=== PATIENT | female | born 1990 | race Caucasian/White ===

== ENCOUNTER → 2023-09-09 15:52 | Outpatient (REF) | payer BC, SELFPAY | LOC: PNTC 15:52 | PROVIDERS: ATTENDING PHYSICIAN Obstetrics & Gynecology | DX: O99.210 Obesity complicating pregnancy, unspecified trimester (principal); Z87.51 Personal history of pre-term labor | CPT/HCPCS: 76816 ==

== ENCOUNTER → 2023-09-24 15:57 | Outpatient (REF) | payer BC, SELFPAY | LOC: PNTC 15:57 | PROVIDERS: ATTENDING PHYSICIAN Obstetrics & Gynecology | DX: O99.210 Obesity complicating pregnancy, unspecified trimester (principal); Z87.51 Personal history of pre-term labor | CPT/HCPCS: 59025; 76815 ==

== ENCOUNTER → 2023-10-01 15:40 | Outpatient (REF) | payer BC, SELFPAY | LOC: PNTC 15:40 | PROVIDERS: ATTENDING PHYSICIAN Obstetrics & Gynecology | DX: O99.210 Obesity complicating pregnancy, unspecified trimester (principal); Z87.51 Personal history of pre-term labor | CPT/HCPCS: 59025; 76815 ==

== ENCOUNTER 2023-10-08 16:27 | Observation (INO) | payer BC, SELFPAY ==
[2023-10-08 16:51] LABS: Hematocrit 36.8 % (37.0-47.0); Hemoglobin 12.3 g/dL (12.0-16.0); Mean Corp Hgb Conc. 33.4 g/dL (33.0-37.0); Mean Corpuscular Hgb 29.7 pg (27.0-31.0); Mean Corpuscular Volume 88.9 fL (81.0-99.0); Platelet Count 241 10^3/uL (130-400); Red Blood Cell Count 4.14 10^6/uL (4.20-5.40); Red Cell Dist. Width 13.9 % (11.5-14.5); White Blood Cell Count 9.7 10^3/uL (4.8-10.8)
[2023-10-08 17:12] LABS: Protein/creatinine Ratio 1.1; Urine Protein 14 mg/dl
[2023-10-08 17:12] LABS: ALT (SGPT) 19 U/L (0-35); AST (SGOT) 31 U/L (14-36); Albumin 3.7 g/dl (3.5-5.0); Alkaline Phosphatase 111 U/L (38-126); Blood Urea Nitrogen 6 mg/dl (7-17); Calcium 9.7 mg/dl (8.4-10.2); Carbon Dioxide 20 mmol/L (22-30); Chloride 104 mmol/L (98-107); Glucose 117 mg/dl (70-99); Potassium 3.7 mmol/L (3.5-5.1); Sodium 133 mmol/L (135-145); Total Bilirubin 0.5 mg/dl (0.2-1.3); Total Protein 6.6 g/dl (6.3-8.2); eGFR > 60.00
[2023-10-08 17:25] VITALS: BP 148/77; BMI 39.0
[2023-10-08] MEDS: CELESTONE SOLUSPAN 2 MG IM (17:53)
== END 2023-10-08 18:10 | disposition home or self-care (01) ==
LOC: PNTC-IN 16:27
PROVIDERS: ADMITTING PHYSICIAN Obstetrics & Gynecology
DX: O14.03 Mild to moderate pre-eclampsia, third trimester (principal); Z3A.36 36 weeks gestation of pregnancy; Z88.8 Allergy status to other drugs, medicaments and biological substances; Z91.040 Latex allergy status; Z88.5 Allergy status to narcotic agent; Z91.018 Allergy to other foods; Z91.010 Allergy to peanuts; Z91.013 Allergy to seafood
CPT/HCPCS: 59025; 76816; 80053; 82570; 84156; 85027; G0378

== ENCOUNTER 2023-10-09 17:35 | Observation (INO) | payer BC, SELFPAY ==
[2023-10-09 17:49] VITALS: BP 134/75; BMI 39.0
[2023-10-09] MEDS: CELESTONE SOLUSPAN 2 MG IM (18:06)
== END 2023-10-09 18:27 | disposition home or self-care (01) ==
LOC: LDRP 17:35
PROVIDERS: ADMITTING PHYSICIAN Obstetrics & Gynecology
DX: O14.03 Mild to moderate pre-eclampsia, third trimester (principal); Z3A.36 36 weeks gestation of pregnancy; Z88.8 Allergy status to other drugs, medicaments and biological substances; Z91.040 Latex allergy status; Z88.5 Allergy status to narcotic agent; Z91.018 Allergy to other foods; Z91.010 Allergy to peanuts; Z91.013 Allergy to seafood
CPT/HCPCS: 96372; S5001; J0702; G0378

== ENCOUNTER 2023-10-14 19:23 | Inpatient (IN) | payer BC, SELFPAY ==
[2023-10-14 19:37] VITALS: BP 138/78; BMI 38.8
[2023-10-14] MEDS: LR 1000 IV (20:09)
[2023-10-14] MEDS: CYTOTEC 50 MICROGRAM VAG (20:10)
[2023-10-14 20:22] LABS: % Basophils 0.2 % (0-2); % Eosinophils 0.5 % (0-6); % Immature Granulocytes 0.4 % (0-0.5); % Lymphocytes 25.5 % (20.5-51.1); % Monocytes 6.9 % (1.7-9.3); % Neutrophils 66.5 % (42.2-75.2); Absolute Eosinophils 0.1 10^3/uL (0-0.7); Absolute Lymphocytes 2.8 10^3/uL (1.2-3.4); Absolute Monocytes 0.8 10^3/uL (0.1-0.6); Absolute Neutrophils 7.4 10^3/uL (1.4-6.5); Hematocrit 35.3 % (37.0-47.0); Mean Corpuscular Hgb 29.6 pg (27.0-31.0); Mean Corpuscular Volume 87.2 fL (81.0-99.0); Mean Platelet Volume 10.5 fL (7.4-10.4); Nucleated Red Blood Cells % 0 %; Platelet Count 260 10^3/uL (130-400); Red Blood Cell Count 4.05 10^6/uL (4.20-5.40); Red Cell Dist. Width 13.7 % (11.5-14.5); White Blood Cell Count 11.1 10^3/uL (4.8-10.8)
[2023-10-14 20:40] LABS: ALT (SGPT) 15 U/L (0-35); AST (SGOT) 22 U/L (14-36); Albumin 3.6 g/dl (3.5-5.0); Alkaline Phosphatase 111 U/L (38-126); Blood Urea Nitrogen 10 mg/dl (7-17); Calcium 9.9 mg/dl (8.4-10.2); Carbon Dioxide 22 mmol/L (22-30); Chloride 107 mmol/L (98-107); Estimated Creatinine Clearance > 125 ml/min; Glucose 103 mg/dl (70-99); Potassium 3.9 mmol/L (3.5-5.1); Sodium 133 mmol/L (135-145); Total Bilirubin 0.4 mg/dl (0.2-1.3); Total Protein 6.3 g/dl (6.3-8.2); eGFR > 60.00
[2023-10-14 21:01] LABS: Protein/creatinine Ratio 0.4; Urine Protein 21 mg/dl
[2023-10-15] MEDS: CYTOTEC 50 MICROGRAM PO ×2 (00:15→04:19)
[2023-10-15] MEDS: PITOCIN 30 UNITS/NSS 500 ML IV (12:48)
[2023-10-15] MEDS: SUBLIMAZE 100 MCG EPIDURAL (16:37)
[2023-10-15] MEDS: FENTANYL/BUPIVACAINE 100 EPIDURAL (16:38)
[2023-10-15] MEDS: MOTRIN 600 MG PO (23:48)
--- NOTE | 2023-10-16 03:49 | DOWNTIME ---
There was a [employer] Downtime on 10/16/2023 from 0100 to 10/16/2023 at 0322. Downtime documentation of patient's care, including medication administrations, has been reconciled in the electronic record per guidelines. Refer to the
patient's paper chart under the miscellaneous tab to see printed paper medication records and downtime forms.
[2023-10-16 05:45] LABS: Hemoglobin 12.6 g/dL (12.0-16.0)
[2023-10-16] MEDS: MOTRIN 600 MG PO ×3 (05:45→19:26)
[2023-10-16] MEDS: PRENATAL PLUS 1 TABLET PO (07:18)
[2023-10-16] MEDS: COLACE 100 MG PO (07:19)
[2023-10-16] MEDS: TYLENOL 650 MG PO ×3 (07:19→19:26)
[2023-10-17] MEDS: TYLENOL 650 MG PO (01:51)
[2023-10-17] MEDS: MOTRIN 600 MG PO ×2 (01:51→08:35)
[2023-10-17] MEDS: PRENATAL PLUS 1 TABLET PO (08:31)
[2023-10-17] MEDS: COLACE 100 MG PO (08:31)
[2023-10-18 16:53] LABS: Syphilis/T. pallidum Ab Reflex Negative (Negative)
== END 2023-10-17 11:11 | disposition home or self-care (01) | DRG 807 ==
LOC: LDRP 19:23
PROVIDERS: Obstetrics & Gynecology; ADMITTING PHYSICIAN Obstetrics & Gynecology
PROC: 3E0P7VZ Introduction of Hormone into Female Reproductive, Via Natural or Artificial Opening (ICD-10-PCS; 2023-10-14)
PROC: 3E0DXGC Introduction of Other Therapeutic Substance into Mouth and Pharynx, External Approach (ICD-10-PCS; 2023-10-15)
PROC: 10907ZC Drainage of Amniotic Fluid, Therapeutic from Products of Conception, Via Natural or Artificial Opening (ICD-10-PCS; 2023-10-15)
PROC: 0UQMXZZ Repair Vulva, External Approach (ICD-10-PCS; 2023-10-15)
PROC: 10E0XZZ Delivery of Products of Conception, External Approach (ICD-10-PCS; 2023-10-15)
DX: O14.04 Mild to moderate pre-eclampsia, complicating childbirth (principal); Z37.0 Single live birth; Z3A.37 37 weeks gestation of pregnancy; O70.0 First degree perineal laceration during delivery; O99.344 Other mental disorders complicating childbirth; O32.2XX0 Maternal care for transverse and oblique lie, not applicable or unspecified; F41.9 Anxiety disorder, unspecified; J45.909 Unspecified asthma, uncomplicated; O99.52 Diseases of the respiratory system complicating childbirth; G43.909 Migraine, unspecified, not intractable, without status migrainosus; K59.00 Constipation, unspecified; Z88.8 Allergy status to other drugs, medicaments and biological substances; Z91.040 Latex allergy status; Z88.5 Allergy status to narcotic agent; Z91.018 Allergy to other foods; Z91.010 Allergy to peanuts; Z91.013 Allergy to seafood; Z82.5 Family history of asthma and other chronic lower respiratory diseases; Z82.49 Family history of ischemic heart disease and other diseases of the circulatory system
CPT/HCPCS: 88307; 80053; 82570; 84156; 85014; 85018; 85025; 86780; 86850; 86900; 86901

== ENCOUNTER 2025-06-12 15:42 | Emergency (ER) | payer BC, SELFPAY ==
[2025-06-12 15:44] VITALS: BP 131/92
[2025-06-12] MEDS: TORADOL 30 MG IM (16:44)
--- NOTE | 2025-06-12 18:49 | ED.GENMED ---
History of Present Illness
General
Chief Complaint: Back Pain
Source: patient
Exam Limitations: none
Time Seen by Provider: 06/12/25 16:04
Nursing documentation reviewed up to this point in time: agreed with
History of Present Illness
History of Present Illness:
see MDM
Review of Systems
Review of Systems
Allergies reviewed?: Yes
All Other Systems: Not applicable
Phy Exam
Physical Exam
Physical Exam:
GENERAL: Alert , in no apparent distress, comfortable at rest
CARDIAC: Regular rate and rhythm, no edema
LUNGS: Clear breath sounds bilaterally, no acute respiratory distress, no wheezes/rales/rhonchi
ABDOMEN: Soft, without focal tenderness, no r/g, no cvat, normal bowel sounds, nondistended
NEUROLOGICAL: Alert and oriented, no focal neuro deficits, CN intact, 5/5 strength, sensation intact, ambulation slight limp left leg
SKIN: Warm and dry,
MUSCULOSKELETAL: No edema, well perfused. Normal inspection of the left hip, left leg
Patient has no tenderness to palpation of the hip, no SI joint tenderness
Back: No midline tenderness, mild dextroscoliosis, slight left paraspinal muscle tenderness on exam, no swelling
negative straight leg raise Bilaterally
PSYCH: Normal and appropriate interaction.
Course
Orders/Labs/Results
Orders:
Orders
06/12/25 16:36
Ketorolac [Toradol] 30 mg IM NOW STA
Lumbar Spine Complete, 4 View [CR Lumbar Spine Comp Min 4 Vw*] Urgent
Comment:
Reason For Exam: L lumbar pain
Vital Signs
Initial and Last Documented VS:
Initial Vital Signs
Temp Pulse Resp BP Pulse Ox
36.6 C 84 20 131/92 97
06/12/25 15:44 06/12/25 15:44 06/12/25 15:44 06/12/25 15:44 06/12/25 15:44
Last Documented Vital Signs
Temp Pulse Resp BP Pulse Ox
36.6 C 84 20 131/92 97
06/12/25 15:44 06/12/25 15:44 06/12/25 15:44 06/12/25 15:44 06/12/25 15:44
MDM/Problems Addressed
Differential Diagnosis Includes:
see MDM
MDM/Problems Addressed:
Note:
CHIEF COMPLAINT(S)
Severe left lower back pain.
HISTORY OF PRESENT ILLNESS
The patient is a female with no specified age, presenting with a history of back pain originating about a month ago localized to the left lower back area. She describes the pain as severe, stating it 'does cause on' and she �can�t do anything� when
the pain occurs. Initially, it was perceived as sciatica, which transiently resolved but has now exacerbated following a recent lifting action, possibly associated with attempting to put down her child. She describes a significant incident where,
after lying down, she was unable to rise from bed, initially managing with ibuprofen and a heating pad. The pain seemed to improve temporarily, allowing full mobility, but worsened again after bending over to brush her hair. This has resulted in
functional limitations, including difficulty sitting and requiring assistance from her spouse to rise. Driving is painful, and exiting the vehicle exacerbates the pain. She attempted self-management by resting with a heating pad and taking ibuprofen
at around 10 AM and an additional dose at noon. The patient denies any recent falls.
PAST MEDICAL AND SURIGICAL HISTORY
No previous imaging, such as X-rays or MRIs, for this condition. No known history of using muscle relaxers.
SOCIAL HISTORY
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
MEDICATIONS
Uses ibuprofen for pain management, with recent intake of 200 mg doses.
PHYSICAL EXAM
see ABOVE
PROBLEM LIST
Acute:
- Severe left lower back pain with muscle spasm and functional impairment.
Chronic:
- Sciatica (self-reported history).
PLAN
- Administer intramuscular injection of ketorolac (Toradol) for immediate pain relief.
- Prescribe a regimen of ibuprofen, a muscle relaxer, and a lidocaine patch for ongoing management of pain and muscle spasm.
- Order screening spinal X-rays to evaluate structural alignment, rule out any arthritic changes, and assess intervertebral spacing.
- Consider follow-up with physical therapy or orthopedic consultation should symptoms persist or worsen.
DIFFERENTIAL DIAGNOSIS
The Differential Diagnosis includes, in no particular order and is not limited to:
1. Lumbar strain or sprain
2. Sciatica
3. Degenerative disc disease
4. Lumbar disc herniation
5. Facet joint syndrome
6. Spinal stenosis
7. Piriformis syndrome
8. Myofascial pain syndrome
9. Ankylosing spondylitis
10. Sacroiliac joint dysfunction
CARE-UPDATE
06/12/25 - 17:44
The patient has a minimal spinal curvature identified as likely scoliosis, but no significant bone changes or degeneration were noted. An X-ray shows that the patients spine is unusually straight, attributed to muscle spasms rather than bone
anomalies. The treatment plan includes prescription-strength ibuprofen (600 mg) three times daily with food, a muscle relaxer to be taken up to three times a day (advised primarily at night due to potential drowsiness), and lidocaine patches for
pain relief. Urgent follow-up is needed if symptoms like numbness, tingling, weakness, or incontinence occur. The patient expressed some relief and improved mobility. Physical therapy may be considered if symptoms persist.
*Pulse Oximetry
SaO2: 97
Oxygen Mode of Delivery: Room air
Patient hypoxic: no (97)
*Critical Care Note
Total Time (30-74mins, 75-104mins- exclusive of procedures): Not Applicable
ED Attending Note
-
Portions of this chart may have been created with voice recognition software.� Occasional wrong word or��sound alike� substitutions may have occurred due to the inherent limitations of voice recognition software.
Discharge Plan
Departure
Patient Disposition: Home (Routine Discharge)
Date of Disposition: 06/12/25
Time of Disposition: 17:38
Patient with high blood pressure during this ER visit?: No
Condition: Fair
Covid-19: Not Applicable
Discharge Problem:
Low back pain
Instructions: Low Back Pain (DC)
Prescriptions:
New
ibuprofen 600 mg tablet
600 mg PO TID PRN (Reason: Pain) Qty: 20 0RF
cyclobenzaprine 5 mg tablet
5 mg PO HS PRN (Reason: muscle spasm) Qty: 12 0RF
lidocaine 5 % adhesive patch,medicated
1 patch topical DAILY PRN (Reason: pain) Qty: 15 0RF
No Action
albuterol 90 mcg/actuation Aerosol
2 mcg INHALATION Q4H PRN (Reason: SOB)
1 tab PO DAILY
acetaminophen 325 mg Tablet
650 mg PO Q4HPRN PRN (Reason: mild pain) Qty: 0 0RF
ibuprofen 600 mg Tablet
600 mg PO Q6HPRN PRN (Reason: moderate pain/cramps) Qty: 0 0RF
WesTab Plus 27 mg iron- 1 mg Tablet
1 tab PO DAILY Qty: 0 0RF
Referrals:
Mar Barton PA-C [Family Provider, Internal Medicine] - Follow up in 5-7 days
Activity Restrictions/Additional Instructions:
Your x-ray showed that you have a mild scoliosis which is just a curvature to your spine and maybe a little bit of degenerative changes but nothing significant. Take ibuprofen 600 mg 3 times a day with food. Do this for 3 to 5 days for
inflammation. You can take Tylenol 2 extra strength 3 times a day as well. And then at night you can take 1 or 2 tablets of the Flexeril 5 mg which is a muscle relaxer. This will make you tired, sometimes even into the next day. You could take
it up to 3 times a day if you would like but again it would make you sleepier.
Follow-up with your family doctor if you are not feeling better. Return for leg weakness, numbness, incontinence, fever or chills, urinary symptoms etc.
Interventions
Interventions:
*Risk Screen - Suicide Last Done: 06/12/25 17:47
*General Assessment Last Done: 06/12/25 15:44
*Neglect/Abuse Screening Last Done: 06/12/25 17:47
*Nursing Disposition Last Done: 06/12/25 17:56
ED-Musculoskeletal Assessment Last Done: 06/12/25 17:47
Discharge Date and Time
Discharge Date/Time: 06/12/25 17:56
Print Language: NIGERIAN
== END 2025-06-12 17:56 | disposition home or self-care (01) ==
LOC: EMR 15:42
PROVIDERS: EMERGENCY PHYSICIAN Emergency Medicine; FAMILY PHYSICIAN Physician Assistant
DX: M54.50 Low back pain, unspecified (principal)
CPT/HCPCS: 96372; 99284; 72110